=== PATIENT | female | born 1980 | race American Indian/Alaskan Native ===

== ENCOUNTER 2021-12-13 21:04 | Outpatient (CLI) | payer OTHER ==
[2021-12-13 22:33] VITALS: BP 141/72
--- NOTE | 2021-12-13 23:36 | Ultrasound Report ---
ULTRASOUND OBSTETRIC INDICATION / CLINICAL INFORMATION: PAIN, BLEEDING. Clinical Gestational Age (GA) in weeks, days: 18, 6 TECHNIQUE: Transabdominal. COMPARISON: None available. FINDINGS: Single intrauterine . Biparietal Diameter = 3.7 cm = 17, 1 weeks, days Head Circumference = 13.7 cm = 17, 1 weeks, days Abdominal Circumference = 10.8 cm = 16, 5 weeks, days Femur Length = 2.1 cm = 16, 2 weeks, days Average Ultrasound Age (AUA) = 16, 6 weeks, days Heart Rate: 157 beats per minute. Estimated Weight in grams (if calculated): 161 Estimated Weight Growth Percentile (if calculated): Not calculated Position: breech. Cervix: closed. Length in cm (if measured): Not measured Placenta: anterior and free of the os. No evidence placental abruption Amniotic Fluid Volume: normal Amniotic Fluid Index (CAPO) in cm (if calculated): Not calculated. Maternal Adnexa: No significant abnormality. OTHER: Multiple fibroids are seen within the uterus measuring up to 7.4 cm. IMPRESSION: 1. Single, living intrauterine with estimated sonographic age of 16, 6 weeks, days. 2. No evidence of placental abruption. 3. Fibroid uterus. Signer Name: Tapan Erwin DO Signed: 12/13/2021 11:32 PM Workstation Name: [id number]
== END 2021-12-13 22:43 | disposition home or self-care (01) ==
LOC: TRG 21:04 → APU 21:06 → TRG 22:43
PROVIDERS: ATTEND Obstetrics & Gynecology Gynecology
DX: O34.12 Maternal care for benign tumor of corpus uteri, second trimester (principal); Z3A.16 16 weeks gestation of pregnancy
CPT/HCPCS: 76805